=== PATIENT | male | born 1950 | race Caucasian/White ===

== ENCOUNTER 2017-01-23 10:14 | Emergency (ER) | payer MEDICARE ==
[2017-01-23 10:21] VITALS: BP 146/84
--- NOTE | 2017-01-23 10:53 | UC ---
Melanie Adams Rebecca, scribed for Janet Carmona MD on 01/23/17 at 1024 . Laceration HPI - HPI Summary HPI Summary: Pt is a 66 y/o M who presents to [facility] c/o L thumb laceration since 1800 last night. Laceration caused by the pt reaching into the shoe caser and cutting his thumb on a food counselor blade. Pt presents today due to the wound being deeper than previously noticed. He is not currently in any pain. Denies numbness in the finger. Unknown last Tetanus shot, though he believes it was within the last 5 years. 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 - History Of Current Complaint Chief Complaint: UCLaceration Stated Complaint: THUMB LAC Time Seen by Provider: 01/23/17 10:23 Hx Obtained From: Patient Laceration Location: Finger - L thumb Mechanism Of Injury: Sharp Trauma - etched circuit processor blade Onset/Duration: Still Present Pain Intensity: 0 Pain Scale Used: 0-10 Numeric - Allergies/Home Medications Allergies/Adverse Reactions: Allergies Allergy/AdvReac Type Severity Reaction Status Date / Time No Known Allergies Allergy Verified 01/23/17 10:15 PMH/Surg Hx/FS Hx/Imm Hx Previously Healthy: No Cardiovascular History: Hypertension Psychological History: Depression - Surgical History Surgical History: None - Family History Known Family History: Positive: Other - AIDS (brother); parents and most family members long lived. - Social History Occupation: Retired Lives: Alone Alcohol Use: None Substance Use Type: Marijuana Smoking Status (MU): Never Smoked Tobacco Review of Systems Constitutional: Negative Skin: Other - L thumb laceration Eyes: Negative ENT: Negative Respiratory: Negative Cardiovascular: Negative Gastrointestinal: Negative Genitourinary: Negative Motor: Negative Neurovascular: Negative Musculoskeletal: Negative Neurological: Negative Psychological: Negative All Other Systems Reviewed And Are Negative: Yes Physical Exam Triage Information Reviewed: Yes Appearance: Well-Appearing, No Pain Distress Vital Signs: Initial Vital Signs Temp 97.7 F 01/23/17 10:18 Pulse 78 01/23/17 10:18 Resp 20 01/23/17 10:18 BP 146/84 01/23/17 10:18 Pulse Ox 100 01/23/17 10:18 Vital Signs Reviewed: Yes Respiratory: Positive: Lungs clear, Normal breath sounds Cardiovascular: Positive: RRR, No Murmur Musculoskeletal Exam: Normal Neurological: Positive: Alert Psychological Exam: Normal Skin Exam: Other - 1.5 cm superficial linear longitudinal laceration distal phalanx, not into fat pad. No active bleeding. Laceration Repair - Laceration Repair 1 Description: Linear Laceration Size After Repair: Length (cm) - 1.5, Width (mm) Modified For Repair: No Closure Material: SteriStrips Laceration Course/Dx - Course/Dx Course Of Treatment: steristrips applied. NO evidence of infection. - Differential Dx - Laceration/Wound Provider Diagnoses: laceration left thumb Discharge - Discharge Plan Condition: Stable Disposition: HOME Patient Education Materials: Steristrips (ED) Referrals: Christian Chacon MD [Primary Care Provider] - Additional Instructions: The dressing should help to keep the wound dry, but change to a dry dressing once you are finished cooking. Follow up with Dr. Chacon--to confirm that the date of your last tetanus was within 5 years AND to re-check your blood pressure. There are no signs of infection at present. You can peel off the steristrips as they begin to curl. The documentation as recorded by the Melanie horton Rebecca accurately reflects the service I personally performed and the decisions made by me, Janet Carmona MD.
== END 2017-01-23 10:57 | disposition home or self-care (01) ==
LOC: UCEAST 10:14
DX: S61.012A Laceration without foreign body of left thumb without damage to nail, initial encounter (principal); W26.8XXA Contact with other sharp object(s), not elsewhere classified, initial encounter; Y93.89 Activity, other specified; Y92.89 Other specified places as the place of occurrence of the external cause; Y99.9 Unspecified external cause status
CPT/HCPCS: 99212; G0463